=== PATIENT | female | born 1945 | race Caucasian/White ===

== ENCOUNTER 2019-05-19 15:50 | Emergency (ER) | payer MEDICARE ==
[~2019-05-19] VITALS: Wt 68.0 kg
== END 2019-05-19 22:31 | disposition expired ==
LOC: ED 16:18
DX: I46.9 Cardiac arrest, cause unspecified (principal); S01.01XA Laceration without foreign body of scalp, initial encounter; J44.9 Chronic obstructive pulmonary disease, unspecified; X58.XXXA Exposure to other specified factors, initial encounter; Y93.89 Activity, other specified; Y92.89 Other specified places as the place of occurrence of the external cause; Y99.9 Unspecified external cause status